=== PATIENT | female | born 1960 | race Caucasian/White ===

== ENCOUNTER 2023-12-02 15:54 | Observation (INO) | payer OTHER ==
[2023-12-02] MEDS ORDERED: ACETAMINOPHEN INJECTION 100 ML IVPB ONE (16:41)
[2023-12-02 16:44] LABS: HEMATOCRIT 46.7 % (32.4-45.2); HEMOGLOBIN 15.1 G/dL (10.7-15.3); INR 1.22 (0.83-1.09); MCH 30.4 pg (25.7-33.7); MCHC 32.2 g/dl (32.0-36.0); MEAN CELL VOLUME 94.4 fl (80-96); MEAN PLT VOLUME 7.7 fl (7.5-11.1); PLATELET COUNT 195.7 10^3/uL (134-434); PROTHROMBIN TIME (PATIENT) 13.8 SEC (9.7-13.0); RBC 4.95 10^6/uL (3.60-5.2); WHITE BLOOD COUNT 8.2 10^3/uL (4.0-10.8)
[2023-12-02 16:46] LABS: ACTIVATED PTT 27.5 SECONDS (25.2-36.5)
[2023-12-02 16:55] LABS: ALBUMIN 4.2 g/dl (3.4-5.0); BILIRUBIN,TOTAL 0.6 mg/dl (0.2-1); CALCIUM 9.4 mg/dl (8.5-10.1); CREATININE 1.1 mg/dl (0.6-1.3); MAGNESIUM 2.2 mg/dL (1.8-2.4); POTASSIUM 4.3 mmol/L (3.5-5.1); TOT PROT 7.1 g/dl (6.4-8.2)
[2023-12-02] MEDS: ACETAMINOPHEN 1000 MG/100 ML BAG IVPB ONE (16:59)
[2023-12-02] MEDS: SODIUM CHLORIDE 0.9% 1000 ML INFUS.BAG IV ONE (16:59)
[2023-12-02] MEDS ORDERED: DIPHTH,PERTUSS(ACELL),TET 0.5 ML DISP.SYRIN IM ONE (17:00)
[2023-12-02] MEDS: DIPHTH,PERTUSS(ACELL),TET 0.5 ML DISP.SYRIN IM ONE (17:02)
[2023-12-02] MEDS ORDERED: LIDO 2%/EPI 1:200000 PRESRVFRE (20 ML SDVIAL) ONE (18:10)
[2023-12-02] MEDS ORDERED: DOCUSATE SODIUM 100 MG CAPSULE (FP) PO PRN (20:51)
[2023-12-02 23:45] VITALS: BMI 25.5
[2023-12-03] MEDS: SODIUM CHLORIDE 1,000 ML IV SCH (00:01)
[2023-12-03] MEDS: ACETAMINOPHEN 1000 MG/100 ML BAG IVPB PRN (06:39)
[2023-12-03 08:47] LABS: HEMATOCRIT 40.8 % (32.4-45.2); HEMOGLOBIN 13.4 G/dL (10.7-15.3); MCH 30.9 pg (25.7-33.7); MCHC 32.9 g/dl (32.0-36.0); MEAN CELL VOLUME 93.7 fl (80-96); MEAN PLT VOLUME 8.1 fl (7.5-11.1); RBC 4.35 10^6/uL (3.60-5.2); RDW 14.3 % (11.6-15.6); WHITE BLOOD COUNT 7.5 10^3/uL (4.0-10.8)
[2023-12-03 09:33] LABS: CALCIUM 8.6 mg/dl (8.5-10.1); CREATININE 0.8 mg/dl (0.6-1.3); POTASSIUM 4.2 mmol/L (3.5-5.1)
[2023-12-03] MEDS: REMDESIVIR 200 MG in SODIUM CHLORIDE 250 ML IVPB ONE (11:00)
[2023-12-04] MEDS: ACETAMINOPHEN 325 MG TABLET (FP) PO PRN (06:30)
[2023-12-04 09:02] LABS: ALBUMIN 3.4 g/dl (3.4-5.0); BILIRUBIN,TOTAL 0.9 mg/dl (0.2-1); CALCIUM 8.3 mg/dl (8.5-10.1); CREATININE 0.6 mg/dl (0.6-1.3); POTASSIUM 3.7 mmol/L (3.5-5.1); TOT PROT 5.7 g/dl (6.4-8.2)
[2023-12-04 09:26] LABS: BASO % 0.1 % (0-2.0); EOS % 0.1 % (0-4.5); HEMATOCRIT 37.5 % (32.4-45.2); HEMOGLOBIN 13.1 GM/dL (10.7-15.3); LYMPH % 7.1 % (8-40); MCH 31.5 pg (25.7-33.7); MEAN CELL VOLUME 90.1 fl (80-96); MEAN PLT VOLUME 7.7 fl (7.5-11.1); MONO % 4.1 % (3.8-10.2); NEUT % 88.6 % (42.8-82.8); PLATELET COUNT 196 10^3/uL (134-434); RBC 4.16 M/mm3 (3.60-5.2); RDW 13.2 % (11.6-15.6)
[2023-12-04 09:28] LABS: N-TERMINAL BNP 520.5 pg/ml (5-125)
[2023-12-04 10:16] VITALS: BP 120/63; PULSE 85; RESP 17; TEMP 98.6
[2023-12-04] MEDS ORDERED: ARTIFICIAL TEARS OPHTHALMIC DROPS OU SCH (13:00)
== END 2023-12-04 13:33 | disposition home or self-care (01) ==
LOC: FER 15:54 → UNDOADMOB 20:36 → FM/S 20:36
PROVIDERS: ADMIT Internal Medicine
PROC: 3E0234Z Introduction of Serum, Toxoid and Vaccine into Muscle, Percutaneous Approach (ICD-10-PCS; 2023-12-02)
PROC: 3E033NZ Introduction of Analgesics, Hypnotics, Sedatives into Peripheral Vein, Percutaneous Approach (ICD-10-PCS; 2023-12-02)
PROC: 3E033GC Introduction of Other Therapeutic Substance into Peripheral Vein, Percutaneous Approach (ICD-10-PCS; 2023-12-02)
PROC: 3E0337Z Introduction of Electrolytic and Water Balance Substance into Peripheral Vein, Percutaneous Approach (ICD-10-PCS; 2023-12-02)
PROC: 0HQ1XZZ Repair Face Skin, External Approach (ICD-10-PCS; principal; 2023-12-04)
DX: U07.1 COVID-19 (principal); S01.81XA Laceration without foreign body of other part of head, initial encounter; S01.21XA Laceration without foreign body of nose, initial encounter; W18.30XA Fall on same level, unspecified, initial encounter; Y93.89 Activity, other specified; Y92.512 Supermarket, store or market as the place of occurrence of the external cause; R55 Syncope and collapse; Z23 Encounter for immunization
CPT/HCPCS: 0241U-QW; 13131; 13151; 36415; 70450-TC; 70486-TC; 71045-TC-FY; 72125-TC; 80048; 80053; 80061; 83036; 83735; 83880; 84439; 84443; 84484; 85025; 85027; 85610; 85730; 86850; 86900; 86901; 90471; 90715; 93005; 96361; 96365; 96375; 96376; 99285-25; G0378; J0131; J0248

== ENCOUNTER 2023-12-11 11:00 | Emergency (ER) | payer OTHER ==
[2023-12-11 11:05] VITALS: BP 129/89; PULSE 76; RESP 18; TEMP 98.4; BMI 28.3
== END 2023-12-11 11:45 | disposition home or self-care (01) ==
LOC: FER 11:00
DX: Z48.02 Encounter for removal of sutures (principal)
CPT/HCPCS: 99281-25